=== PATIENT | female | born 1950 | race Caucasian/White ===

== ENCOUNTER 2022-09-13 08:41 | Emergency (ER) | payer MEDICARE, OTHER ==
[~2022-09-13] VITALS: Ht 172.7 cm; Wt 91.4 kg
[2022-09-13] MEDS ORDERED: ALENDRONATE SOD70 MG PO (09:08)
--- NOTE | 2022-09-13 21:52 | EKG ---
[facility] [address] [place] [address] Signed Normal sinus rhythm Normal ECG No previous ECGs available Confirmed by KHAI MENDOZA MD [id number] on 09/13/2022 9:52:11 PM Electronically Signed By: KHAI MENDOZA MD 09/13/[id number] PATIENT NAME: EITAN DONAHUE MANJULA [facility] Electrocardiogram DATE OF : 46 PHYSICIAN: KHAI MENDOZA MD REPORT #: [id number] REPORT IS CONFIDENTIAL AND NOT TO BE RELEASED WITHOUT AUTHORIZATION
== END 2022-09-13 10:20 | disposition home or self-care (01) ==
LOC: ED 08:41
DX: J06.9 Acute upper respiratory infection, unspecified (principal); Z88.2 Allergy status to sulfonamides; Z79.899 Other long term (current) drug therapy; Z20.822 Contact with and (suspected) exposure to COVID-19
CPT/HCPCS: 87502; 93005; 93010; 99283-25; C9803; U0003